=== PATIENT | male | born 1965 | race Caucasian/White ===

== ENCOUNTER 2025-02-27 06:39 | Outpatient (OUT) | payer BC, SELFPAY ==
--- OUTSIDE RECORDS SUMMARY | 2025-02-27 06:41 | XMS_ITS | Clinical Summary ---
Author Organization [facility] Address [address] [place], [place] [id number] Care Team Providers Care White Kid Buffer Name Role Phone Raza Varela DO Primary Care Provider [phone] Allergies No known active allergies Medications esomeprazole (NEXIUM) 40 mg capsule Take 40 mg by mouth. Active oxyCODONE-aceta minophen (PERCOCET) 5-325 mg tablet Take 1-2 tablets by mouth every 4 hours as needed for Pain. 120 tablet 0 4 Active Additional Information Patient not taking.Reason: Discontinued by Patient, Reported on 03/06/2019 diclofenac, EC, (VOLTAREN) 75 mg EC tablet Take by mouth q 12 HR. 9 Active oxyCODONE IR (ROXICODONE) 5 mg immediate release tablet Take by mouth. 3 Active calcium citrate/vitamin D3 (CALCIUM CITRATE + ORAL) Take by mouth. Pt takes one every other day Active Social History Tobacco Use Types Packs/Day Years Used Date Smoking Tobacco: Never Tobacco Cessation:Counseling Given: Not Answered Alcohol Use Standard Drinks/Week Comments Not Asked 0 (1 standard drink = 0.6 oz pur e alcohol) PHQ-2 Answer Date Recorded PHQ-2 score 1 12/08/2022 Area Deprivation Index Answer Date Romero rded National Score (1-100), lower number is lower ri sk 80 12/09/2022 State Score (1-10), lower number is lower risk 7 12/09/2022 Data from: https://www.neighborhoodatlas.medicine.[facility].edu/. Last address used for calculation Liana HERMAN 12/09/2022 Sex and Gender Information Value Date Recorded Sex Assigned at Not on file Legal Sex Male 8:16 AM EST Gender Identity Not on file Sexual Orientation Not on file Last Filed Vital Signs Vital Sign Reading Time Taken Comments Blood Pressure 132/76 12/09/2022 10:33 AM EDT Pulse 98 12/09/2022 10:33 AM EDT Temperature 36.6 C (97.9 F) 06/10/2014 4:00 PM EST Respiratory Rate 18 06/10/2014 4:00 PM EST Oxygen Saturation 97% 12/09/2022 10: 33 AM EDT Inhaled Oxygen Concentration - - Weight 63.5 kg (139 lb 15.9 oz) 014 10:48 AM EST Height 172.7 cm (5' 7.99 ) 06/10/2014 1 0:48 AM EST Body Mass Index 21.29 06/10/2014 10:48 AM EST Plan of Treatment Health Maintenance Due Date Last Done Comments Anxiety Screening 11/08/1983 Depression Screening 11/08/1983 HIV Screening 11/08/1983 Hepatitis C Screening 11/08/1983 DTaP,Tdap,Td Vaccine (1 - Tdap) [address] Colonography 2010 Cologuard (FIT-DNA) 2010 Colonoscopy 2010 Colorectal Cancer Screening 2010 Fecal Occult Blood 2010 Prostate Cancer Screening Discussion 2010 Sigmoidoscopy 2010 Pneumococcal Vaccine: 50+ (1 of 1 - PCV) 11/08/2015 Shingrix Vaccine (1 of 2) 11/08/2015 Diabetes Screening 05/31/2017 05/31/2014 Influenza Vaccine (#1) 2025 Procedures Procedure Name Priority Date/Time Associated Diagnosis Comments BASIC METABOLIC PANEL Routine 05/31/2014 11:29 AM EST Other specified pre-operative examination Displacement of lumbar intervertebral disc without myelopathy from Last 3 Months or Most Recently Relevant to Health Maintenance Results * BASIC METABOLIC PNL (05/31/2014 11:29 AM EST) Glucose 89 65 - 100 mg/dL [facility] BUN 10 10 - 25 mg/dL [facility] Creatinine 0.86 0.70 - 1.40 mg/dL [facility] Sodium 143 135 - 146 mmol/L [facility] Potassium 4.3 3.5 - 5.0 mmol/L [facility] Chloride 104 98 - 110 mmol/L [facility] CO2 25 23 - 32 mmol/L [facility] Anion Gap 14 0 - 15 mmol/L [facility] Calcium 9.4 8.5 - 10.5 mg/dL [facility] eGFR- >60 [facility] eGFR-All Other Races >60 . [facility] Comment: eGFR (Estimated GFR) Units of measure: mL/min/1.73 meters squared eGFR is derived from the reexpressed MDRD Study equation using the following parameters: serum creatinine, age, gender and race. The creatinine assay has been calibrated to be traceable to IDMS. An eGFR <60 mL/min/1.73m2 for >3 months is consistent with chronic kidney disease. Refer to KDOQI guidelines for clinical interpretation. In patients with unstable renal function, e.g. those with acute kidney injury, the eGFR may not accurately reflect actual GFR. Blood specimen (specimen) BLOOD SPECIMEN / Unknown 05/31/2014 11:29 AM EST 05/31/2014 11:31 AM EST us Joya Wolf (Rivera)(Hist) [facility] Fi nal Result [facility] [address] [place] [address] from Last 3 Months or Most Recently Relevant to Health Maintenance Insurance [employer] Care Teams White Kid Buffer Relationship Specialty Start Date End Date Raza Varela DO PCP - General Internal Medicine 05/10/14
--- OUTSIDE RECORDS SUMMARY | 2025-02-27 06:41 | XMS_ITS | Encounter Summary ---
Author Organization [facility] Address [address] [place] [id number] Care Team Providers Care Wood Fence Erector Name Role Phone Raza Varela DO Primary Care Provider Source Comments In the event this information is protected by the Federal Confidentiality of Alcohol and Drug AbusePatient Records regulations: The Federal rules restrict any use of the information to criminally investigate or prosecute any alcohol or drug abuse patient.[facility] Reason for Visit * Reason Comments Radiology XR Encounter Details Date Type Department Care Team (Late st Contact Info) Description 12/09/2022 Radiology Radiology [address] [place] [address] [address] [place] [id number] Mayda Osorio, RT(R) Radiology XR Social History Tobacco Use Types Packs/Day Years Used Date Smoking Tobacco: Never Alcohol Use Standard Drinks/Week Comments Not Asked 0 (1 standard drink = 0.6 oz pur e alcohol) PHQ-2 Answer Date Recorded PHQ-2 score 1 12/08/2022 Area Deprivation Index Answer Date Romero rded National Score (1-100), lower number is lower ri sk 80 12/09/2022 State Score (1-10), lower number is lower risk 7 12/09/2022 Data from: https://www.neighborhoodatlas.[facility]/. Last address used for calculation Liana HERMAN 12/09/2022 Sex and Gender Information Value Date Recorded Sex Assigned at Not on file Legal Sex Male 8:16 AM EST Gender Identity Not on file Sexual Orientation Not on file documented as of this encounter Functional Status * Are you deaf or do you have serious difficulty hearing? Answer Date of Assessment Author No 07/23/2014 10:00 AM Sally Ling RN * Are you blind or do you have serious difficulty seeing, even when wearing glasses? Answer Date of Assessment Author No 07/23/2014 10:00 AM Sally Ling RN * Do you have serious difficulty walking or climbing stairs? Answer Date of Assessment Author No 07/23/2014 10:00 AM Sally Ling RN * Do you have difficulty dressing or bathing? Answer Date of Assessment Author No 07/23/2014 10:00 AM Sally Ling RN * Because of a physical, mental, or emotional condition, do you have difficulty doing errands alone such as visiting a doctor's office or shopping? Answer Date of Assessment Author No 07/23/2014 10:00 AM Sally Ling RN documented as of this encounter Mental Status * Because of a physical, mental, or emotional condition, do you have serious difficulty concentrating, remembering, or making decisions? Answer Entry Date Author No 07/23/2014 10:00 AM Sally Ling RN documented in this encounter Progress Notes * Mayda Osorio RT(R) - 12/09/2022 11:52 AM EDT Radiology Service Progress Note PATIENT NAME: Joon Chaves JR DATE OF SERVICE: December 09, 2022 TIME: 11:52 AM PATIENT IDENTITY VERIFICATION COMPLETED USING TWO (2) IDENTIFIERS: Name and Date of confirmedby patient verbally. FALL SCREENING: Has the patient had 2 falls in the last year or 1 fall with injury or currently using an Ambulatory Assistive Device (Walker, Cane, Wheelchair, Crutches, etc.)? No PATIENT GENDER DATA: Male PATIENT RELEVANT IMPLANT DATA REVIEWED: Not Applicable RADIOLOGY DEPARTMENT: General X-ray: Exam(s) Completed: Spine X-Ray(s): Lumbar AP / LAT / L5-S1 / FLEX-EXT PERIPHERAL IV DATA: Not applicable SIGNED BY: RT Alex(R) December 09, 2022 11:52 AM documented in this encounter Plan of Treatment Not on file documented as of this encounter Visit Diagnoses Not on filedocumented in this encounter Care Teams Wood Fence Erector Relationship Specialty Start Date End Date Raza Varela DO PCP - General Internal Medicine 05/10/14 documented as of this encounter
--- OUTSIDE RECORDS SUMMARY | 2025-02-27 06:41 | XMS_ITS | Clinical Summary ---
Author Organization [facility] Address [address] [place] [address] Care Team Providers Care Miniature Set Designer Name Role Phone Unavailable Primary Care Provider Unavailabl e Allergies No known active allergies Encounters Date Type Department Care Team Description 02/08/2025 11:15 AM EDT Ancillary Procedure [facility] [address] [place] [address] Dyspnea, unspecified 02/08/2025 Travel from Last 3 Months Social History Tobacco Use Types Packs/Day Years Used Date Smoking Tobacco: Never Assessed Sex and Gender Information Value Date Recorded Sex Assigned at Not on file Legal Sex Male 8:13 PM EDT Gender Identity Not on file Sexual Orientation Not on file Plan of Treatment Health Maintenance Due Date Last Done Comments CT Colonography 1965 Colonoscopy 1965 Colorectal Cancer Screening 1965 FIT-DNA 1965 FIT 1965 FOBT 1965 Sigmoidoscopy 1965 Influenza Vaccine (#1) 2025 Procedures Procedure Name Priority Date/Time Associated Diagnosis Comments XR CHEST 2 VIEWS Routine 02/08/2025 12:2 4 PM EDT Dyspnea, unspecified from Last 3 Months Results * XR chest 2 views (02/08/2025 12:24 PM EDT) Anatomical Region Laterality Modality Chest Radiographic Alice ging 02/08/2025 3:05 PM EDT Impressions 02/08/2025 3:06 PM EDT No acute cardiopulmonary disease. ELECTRONICALLY SIGNED BY: Raza Walls MD Narrative 02/08/2025 3:06 PM EDT Chest 2 views. HISTORY: Shortness of breath. FINDINGS: Osseous structures intact. Cardiopericardial silhouette normal. Pulmonary vasculature normal. Lungs clear. Procedure Note Raza Walls MD - 02/08/2025 Chest 2 views. HISTORY: Shortness of breath. FINDINGS: Osseous structures intact. Cardiopericardial silhouette normal. Pulmonaryvasculature normal. Lungs clear. IMPRESSION: No acute cardiopulmonary disease. ELECTRONICALLY SIGNED BY: Raza Walls MD us Raza Varela DO IMG XR PROCEDURES Final Resul t from Last 3 Months Insurance [facility]
--- NOTE | 2025-02-27 06:55 | NM_ITS ---
Patient Name: PEDRO LUIS MORTENSEN MR#: [id number] : 1965 Exam Date: 02/27/2025 Ordering Doctor: DR VIVIAN WILSON D.O. RADIOLOGY REPORT PROCEDURE: NM AUGIE PERF SPECT REST STR COMPARISON: None. INDICATIONS: CHEST PAIN, DYSPNEA ON EXERTION TECHNIQUE: Exam Description: Stress/Rest one day protocol gated SPECT Rest Imagin.4 mCi Tc-99m Cardiolite IV on 02/27/2025 Stress Imaging 30.4 mCi Tc-99m Cardiolite IV on 02/27/2025 Exercise Protocol: Kojo Heart Rate (bpm): Rest: 86 Max: 173 PMHR: 107 Blood Pressure: Rest: 130/76 Max: 170/88 Exercise Time: Minutes: 9 Seconds: 49 Stage Reached: Stage: 4 Mets 12.7 Symptoms: Rest and peak stress ECG findings were pending, and the exercise portion of the study was pending per attending physician [facility]. For more details, please see separate cardiac stress test report. FINDINGS: QUALITY OF STUDY: Good PERFUSION DEFECT: LOCATION: N/A SIZE: N/A SEVERITY: N/A TYPE: N/A WALL MOTION: Normal wall motion LV SIZE: 60 mL. TID / TCD: 0.7 LVEF: Calculated EF 78%. SUMMARY: Myocardial perfusion imaging study is normal CONCLUSION: 1. Myocardial perfusion is normal 2. Global left ventricular systolic function is hyperdynamic; EF 78% 3. No significant transient ischemic dilatation Dictated by: Juanito Bradley M.D. on 02/28/2025 at 09:20 Approved by: Juanito Bradley M.D. on 02/28/2025 at 09:22
--- NOTE | 2025-02-27 09:37 | PC.NURSE ---
Nursing Note Cardiac Stress Test Reviewed: Medication, allergies and patient history reviewed. Stress Test: [x ] Patient tolerated stress test well. [ ] Patient unable to tolerate walking on treadmill. Switched to Lexiscan stress test. [x] No chest pain noted per patient [ ] Chest pain that resolved prior to leaving stress lab. [ ] No dyspnea noted. [x ] Dyspnea that resolved prior to leaving stress lab. [ x] Patient left stress lab asymptomatic and hemodynamically stable. [ ] Patient taken to the Emergency Room due to non-resolving symptoms following stress test. [x ] Patient achieved target heart rate. [ ] Patient unable to achieve target heart rate. [ ] Aminophylline administered as reversal agent to Lexiscan (Regadenoson). [ ] Nitro administered. Nursing Comments:Pt had Cardiolite test done and tolerated well. No CP and minimal SOB that resolved within 3 minutes of rest. Pt ambulated to cafeteria for breakfast prior to second set of images.
--- NOTE | 2025-02-27 11:00 | CA_ITS ---
Patient Name: PEDRO LUIS MORTENSEN MR#: [id number] : 1965 Exam Date: 02/27/2025 Ordering Doctor: DR VIVIAN WILSON D.O. ECHOCARDIOGRAM REPORT PROCEDURE: CA ECHO DOPPLER COMPLETE INDICATIONS: Heart murmur COMPARISON: None. DESCRIPTION: COMPLETE ECHOCARDIOGRAM Real-time transthoracic echocardiography with 2D, M-mode, spectral and color flow Doppler performed. QUALITY: Technical quality was good. LEFT VENTRICLE: Normal chamber size. Normal left ventricular wall thickness. Calculated left ventricular ejection fraction is 66%. LV EF: Normal left ventricular ejection fraction, (>55%). DIASTOLIC: Normal diastolic function. ATRIAL SEPTUM: Visually appears intact. LEFT ATRIUM: Normal chamber size. RIGHT ATRIUM: Normal chamber size. RIGHT VENTRICLE: Normal chamber size. Normal right ventricular systolic function. TRICUSPID VALVE: Normal mobility and thickness. No stenosis with no regurgitation. MITRAL VALVE: Normal mobility and thickness. No evidence of mitral valve stenosis. There is no mitral annular calcification. No mitral regurgitation. AORTIC VALVE: Normal trileaflet appearance. No visible sclerosis. Normal leaflet mobility. No evidence of aortic valve stenosis. No aortic regurgitation. AORTIC ROOT: Normal diameter and appearance. PULMONIC VALVE: Normal thickness and mobility. No stenosis. No regurgitation. PERICARDIUM: No evidence of pericardial effusion. IVC: Collapses with inspirations. IVC is normal in size. PLEURA: CONCLUSION: Normal echocardiogram with normal left ventricular systolic function. Adult Echocardiography Procedure Report Left Ventricle LVEDD (3.7 - 5.6 cm): 4.25 cm LVESD (2.2 - 4.0 cm): 2.95 cm LVIVS thickness (0.6 - 1.2 cm): 0.98 cm LVPW thickness (0.5 - 1.0 cm): 1.02 cm e': 0.14 m/s E - e': 4.18 LVOT Max Gradient: 3.06 mm[Hg] LVOT Area (cm2): 0.87 m/s Peak Velocity (LVOT): 0.87 m/s Mean Velocity (LVOT): 0.66 m/s LVOT Diameter 1.94 cm Left Ventricular Ejection Fraction: 66.35 % Left Atrium LA Volume Index (2D A2C): 17.58 ml/m2 Left Atrium Systolic Dimension: 2.87 cm Mitral Valve MV E to A Ratio: 0.66 Mitral Valve A-Wave Peak Velocity: 0.88 m/s Mitral Valve E-Wave Peak Velocity: 0.58 m/s Right Ventricle Aorta AO Root Diam: 3.03 cm Aortic Valve AoV Area (Peak Emiliano): 2.25 cm2, 2.25 cm2 AoV Area (VTI): 2.16 cm2, 2.16 cm2 Peak Velocity(Antegrade Flow): 1.15 m/s Peak Gradient(Antegrade Flow): 5.33 mm[Hg] Mean Velocity(Antegrade Flow): 0.73 m/s Mean Gradient(Antegrade Flow): 2.49 mm[Hg] Velocity Time Integral: 24.25 cm Tricuspid Valve Pulmonic Valve Peak Velocity: 1.19 m/s Peak Gradient: 5.68 mm[Hg] Right Atrium Right Atrium Systolic Pressure: 35.14 ml, 35.14 ml Dictated by: Christopher Schafer MD on 02/27/2025 at 14:49 Approved by: Christopher Schafer MD on 02/27/2025 at 15:00
--- NOTE | 2025-02-27 13:01 | PM.STRESS ---
Stress Test Stress Test Requesting physician: Raza Varela Procedure: Nuclear stress test with Cardiolite General Information: Reason for Stress Test: [Chest pain and shortness of breath] Cardiac History and Risk Factors: [Smoking] Resting 12 - Lead Electrocardiogram: The baseline EKG demonstrates normal sinus rhythm with an incomplete right bundle branch block normal ST and T waves Stress Test: Protocol: [Kojo protocol] Exercise Capacity: [Excellent the patient reached 9 minutes 49 seconds and 12.7 METS with achieving target heart rate] Blood Pressure Response: [Blood pressure response was normal achieving a peak blood pressure of 170/88 mmHg] Rhythm: [Normal sinus rhythm] ST - Response: [No ST changes seen] Patient Response: [No chest pain] Interpretation: Normal, no ischemic changes seen at a good workload. Nuclear interpretation will be reported seperately.
== END 2025-02-27 06:40 | disposition home or self-care (01) ==
LOC: NM 06:40
PROVIDERS: PCP Internal Medicine; Visit Provider Internal Medicine
DX: R07.9 Chest pain, unspecified (principal); R06.09 Other forms of dyspnea; R01.1 Cardiac murmur, unspecified
CPT/HCPCS: 78452; 93017; 93306; A9500